=== PATIENT | male | born 1965 | race Caucasian/White ===

== ENCOUNTER → 2016-08-05 | Outpatient (CLI) | payer BC ==
[~2016-08-05] MED LIST: ASPCH81; LISI-461 PO; MULT-506 PO; PRLSR20 PO; SIMV20TA2 PO
== END | disposition home or self-care (01) ==
LOC: C.PATHSPEC 17:13
PROVIDERS: ATTEND Ophthalmology
DX: D23.12 Other benign neoplasm of skin of left eyelid, including canthus (principal); L91.8 Other hypertrophic disorders of the skin

== ENCOUNTER → 2016-09-02 | Outpatient (CLI) | payer BC | END | disposition home or self-care (01) | LOC: C.PATHSPEC 17:29 | PROVIDERS: ATTEND Plastic Surgery | DX: L98.9 Disorder of the skin and subcutaneous tissue, unspecified (principal) ==

== ENCOUNTER → 2016-11-26 | Outpatient (CLI) | payer BC ==
[~2016-11-26] VITALS: Ht 175.3 cm; Wt 95.0 kg
[2016-11-26 13:26] VITALS: BP 129/86; PULSE 71; Ht 175.3 cm; Wt 95.0 kg
== END | disposition home or self-care (01) ==
LOC: C.NEUR 12:12
PROVIDERS: ATTEND Internal Medicine Pulmonary Disease
DX: G47.33 Obstructive sleep apnea (adult) (pediatric) (principal); G47.61 Periodic limb movement disorder